=== PATIENT | female | born 1975 | race Caucasian/White ===

== ENCOUNTER → 2020-12-29 | Outpatient (CLI) | payer OTHER ==
[~2020-12-29] MED LIST: ENDOCET 5-3251 EACH PO; IRON325 M1 PO
== END ==
LOC: M.RAD 10:35
PROVIDERS: ATTEND Internal Medicine
DX: Z12.31 Encounter for screening mammogram for malignant neoplasm of breast (principal); N63.23 Unspecified lump in the left breast, lower outer quadrant; Z80.3 Family history of malignant neoplasm of breast

== ENCOUNTER → 2021-01-05 | Outpatient (CLI) | payer OTHER ==
--- NOTE | 2021-01-13 14:07 | PATH ---
[address] [address] PATHOLOGY RPT PROCEDURE Name: MONROE JARAMILLO Room: [facility] Gareth#: [id number] Admission: 01/05/21 Date of : 79 Discharge: Report #: [id number] Path Case #: [id number] [facility] Accession Number: [id number] . 01 Material submitted: . breast - LEFT BREAST MASS BIOPSY. Modifiers: left . 01 Clinical history: . US/BREAST BIOPSY/LEFT MASS LEFT BREAST BIOPSY LEFT BREAST MASS 500 2 CRN 2.03X1.37X2.07 . 02 Diagnosis: Breast "left mass 5:00, 2 cmfn", needle biopsy: - INVASIVE DUCTAL CARCINOMA, GRADE 2. - Tumor spans at least 12 mm. - Please see cancer summary below. (KWAME:angel luis; 01/07/2021) . . Surgical Pathology Cancer Case Summary Version: INVASIVE CARCINOMA OF THE BREAST: Biopsy 1.1.0.0 Protocol posting date: November 2019 . Procedure ___ Needle biopsy . Specimen Laterality ___ Left . Tumor Site ___ Clock position: 5 o'clock ___ Distance from nipple: 2 cm . Tumor Size ___ Greatest dimension of largest invasive focus >1 mm: at least 12 mm . Histologic Type ___ Invasive ductal carcinoma . Histologic Grade (Barnsdall Histologic Score) Glandular (Acinar)/Tubular Differentiation ___ Score 2 (10% to 75% of tumor area forming glandular/tubular structures) . Nuclear Pleomorphism ___ Score 2 (cells larger than normal with open vesicular nuclei, visible nucleoli, and moderate variability in both size and shape) [place] [address] PATHOLOGY RPT PROCEDURE Name: MONROE JARAMILLO Room: [facility]#: [id number] Admission: 01/05/21 Date of : 79 Discharge: Report #: [id number] Path Case #: [id number] . Mitotic Rate ___ Score 2 . Overall Grade ___ Grade 2 (score 6) . Ductal Carcinoma In Situ (DCIS) ___ Not identified . Lymphovascular Invasion ___ Not identified . Ancillary Studies Biomarker Studies ___ Breast biomarkers will be ordered on block A1 and the results will be the subject of an addendum report . (KWAME:angel luis; 01/07/2021) . . A message regarding the diagnosis is left for Dr. Justa De La Torre on her office voicemail on 01/10/2021 at 12:55. . MBR 01/10/2021 1256 Local . 02 Comment: The case is seen in co-review with Dr. Leslie Carver who concurs with the above diagnosis. (KEATONK:angel luis; 01/07/2021) . 02 Addendum: . Special studies report received from [facility], [address] [place] [address], [address], [place], [address], on case [id number], labeled with their number [id number], dated 01/11/2021. . Breast/Prognostic Marker Analysis . Specimen Site: Lt Breast Mass 5:00, 2 Cm FN, Needle Biopsy, Breast Cancer Specimen ID #: [id number] . ER (Estrogen Receptor) Absent/Negative Percent: 0.00 Analysis: Manual Comments: ER IHC reviewed with Dr Muna Smiley (surgical pathologist) [place] [address] PATHOLOGY RPT PROCEDURE Name: MONROE JARAMILLO Room: [facility] Servin#: [id number] Admission: 01/05/21 Date of : 79 Discharge: Report #: [id number] Path Case #: [id number] FL (Progesterone Receptor) Absent/Negative Percent: 0.00 Analysis: Manual . HER2 Not Over-Expressed Score: 1+ Analysis: Manual Reference Range . Ki-67 High Proliferation Percent: 90.00% Analysis: Manual . Time to Fixation (Cold Ischemic Time): Immediate Duration of Fixation: 8 hours and 50 min Type of Fixative: 10% Neutral Buffered Formalin . . Comments: ER/PgR testing at [facility]. is performed in compliance with the ASCO/CAP Clinical Practice Guidelines. If the result for ER is less than 1% it is reported as Negative; if the ER result is 1-10% it is reported as Low Positive; if the ER result is greater than 10% it is reported as Positive. If the result for PgR is less than 1% it is reported as Negative; if the PgR result is equal to or greater than 1%, it is reported as Positive. . REF: Myra WRIGHT, Lizabeth DAVIS, et al: Estrogen and Progesterone Receptor Testing in Breast Cancer. ASCO/CAP Guideline Update. DOI 10.5858/arpa.7640-3977-NN. . Whole slide image capture is performed using [employer] ([employer]) platform. Image analysis, if ordered, is performed using Stem software. . at [facility]. Gwyn Yeh MD Pathologist . . Methodology The HER2 Receptor protein expression is analyzed using the [place] HER2 rabbit monoclonal antibody (clone 4B5). This assay is used for diagnostic determination of the HER2 protein over-expression in paraffin embedded, formalin fixed breast cancer tissue on the [place] [address] PATHOLOGY RPT PROCEDURE Name: MONROE JARAMILLO [facility] [id number] Admission: 01/05/21 Date of : 79 Discharge: Report #: [id number] Path Case #: [id number] is processed using a secondary antibody-HRP conjugate detection system. The membrane staining of the tumor is determined either by manual score or image analysis. This antibody is intended for in vitro diagnostic use. The score is reported as 0, 1+, 2+, or 3+. This test is used for clinical purposes. . A rabbit monoclonal antibody (clone SP1) that recognized the Estrogen Receptor is used to perform immunohistochemistry on routinely fixed (formalin) paraffin embedded tissue on the [place] Benchmark. The specimen is processed using a secondary antibody-HRP conjugate detection system. The percentage of stained tumor nuclei is determined either manually or by image analysis. This test is intended for in vitro diagnostic use. This test is used for clinical purposes. . A rabbit monoclonal antibody (clone 1E2) that recognized the Progesterone Receptor is used to perform immunohistochemistry on routinely fixed (formalin) paraffin embedded tissue on the [place] Benchmark. The specimen is processed using a secondary antibody-HRP conjugate detection system. The percentage of stained tumor nuclei is determined either manually or by image analysis. This test is intended for in vitro diagnostic use. This test is used for clinical purposes. . A rabbit monoclonal antibody (clone 30-9) that recognized Ki67 is used to perform immunohistochemistry on routinely fixed (formalin) paraffin embedded tissue on the [place] Benchmark. The specimen is processed using a secondary antibody-HRP conjugate detection system. The percentage of stained tumor nuclei is determined either manually or by image analysis. This test is intended for in vitro diagnostic use. This test is used for clinical purposes. . Intended Use: This antibody is intended for in vitro diagnostic (IVD) use. HER2 (4B5) is a rabbit monoclonal antibody intended for the semi-quantitative detection of HER2 antigen in sections of formalin-fixed, paraffin embedded normal and neoplastic tissue. . This antibody is intended for in vitro diagnostic (IVD) use. Estrogen Receptor (ER) (SP1) is a rabbit monoclonal antibody (IgG) that is intended for the qualitative detection of estrogen receptor (ER) antigen in sections of formalin-fixed, paraffin-embedded tissue. ER is a rabbit monoclonal antibody that recognizes human estrogen receptor alpha. . This antibody is intended for in vitro diagnostic (IVD) use. Progesterone Receptor (FL) (1E2) is a rabbit monoclonal antibody (IgG) that is intended for the qualitative detection of progesterone receptor (FL) antigen in sections of formalin fixed, paraffin embedded tissue. FL is a rabbit monoclonal antibody that recognizes the A and B forms of the human progesterone [place] [address] PATHOLOGY RPT PROCEDURE Name: MONROE JARAMILLO Room: [facility]#: [id number] Admission: 01/05/21 Date of : 79 Discharge: Report #: [id number] Path Case #: [id number] This antibody is intended for in vitro diagnostic (IVD) use. Ki-67 (30-9) is a rabbit monoclonal antibody (IgG) directed against C-terminal portion of Ki-67 antigen. Staining for Ki-67 can be used to aid in assessing the proliferative activity of normal and neoplastic tissue. Ki-67 is a nuclear protein expressed in proliferating cells. During the cell cycle, the Ki-67 antigen is present in the G1, S, G2 and M phase but is absent in the G0 (quiescent phase). . . Disclaimer: This Test was performed by [employer] at [address] [place] [address], [address]. . [facility] is a business unit of [facility]. a wholly-owned subsidiary of [employer]. . This assay has not been validated on decalcified tissues. Results should be interpreted with caution if this specimen was decalcified given the likelihood of false negativity on decalcified specimens. . Any image(s) that accompany this report is/are a security representative image(s) only and should not be used to render a diagnosis. . This interpretation is contingent on the specimen and the clinical information received. . For any special tests/stains performed, known positive cells or tissues are tested with each marker and examined to ensure positivity. Positive and negative internal controls, if present, react appropriately. . This analysis is an adjunct to the evaluation of the referring physician and does not represent a final diagnosis. . The immunohistochemistry tests performed at [facility]. were validated on tissue fixed in 10% neutral buffered formalin. The performance characteristics of the tests performed on tissue processed in other fixatives is not known. . HER2 testing at [facility]., is performed in compliance with the 2018 updated ASCO/CAP Clinical Practice Guideline Focused Update. If the result is EQUIVOCAL (2+), it must be confirmed by an alternative assay such as FISH or Dual LUCHO. REF: Carolann ORTEGA, SUSAN Barone et al: Human Epidermal Growth Factor Receptor 2 Testing in Breast Cancer: ASCO/CAP Clinical Practice Guideline Focused Update. J Clin Oncol 36:5665-1281, 2018. . HER2 and ER/FL ASCO/CAP guidelines require fixation in neutral buffered formalin for a minimum of 6 and a maximum of 72 hours. Fixation times less [address] [address] PATHOLOGY RPT PROCEDURE Name: MONROE JARAMILLO Room: [facility] HANNA Servin#: [id number] Admission: 01/05/21 Date of : 79 Discharge: Report #: [id number] Path Case #: [id number] than 6 hours may not adequately preserve cell proteins. Fixation times longer than 72 hours may cause excess cross-linking of proteins reducing the antigen available for staining. Either scenario can cause reduced staining; hence false negative results are possible and should be considered for these situations if the HER2 IHC score is less than 3+ or ER or FL is negative (no staining or <1% positive). It is recommended that specimens fixed longer than 72 hours with HER2 IHC scores less than 3+ be confirmed by HER2 FISH or Dual LUCHO. The time from biopsy/excision to fixation in formalin (cold ischemic time) must be less than 1 hour. Time to fixation (cold ischemic time) greater than 1 hour should be interpreted with caution. HER2 testing, mainly HER2 by FISH, is particularly vulnerable since excessive cold ischemic time results in preferential loss of HER2 probe signals that may lead to false negative results. . SCORE STAINING PATTERN IN TUMOR CELLS INTERPRETATION RESULTS 0 No staining observed or incomplete, faint membrane staining in less than or equal to 10% of tumor cells. Negative 1+ Incomplete, faint membrane staining in greater than 10% of tumor cells. Negative 2+ Weak to moderate complete membrane staining observed in greater than 10% of tumor cells. Equivocal* *Must be confirmed by alternative assay (IHC/FISH/Dual LUCHO) 3+ Intense, complete membrane staining in greater than 10% of tumor cells. Positive . A complete copy of the report is on file. . Professional and Technical services performed by [facility] at [address] [place] [address]. . (MLK:fahad 01/12/2021) . AZJ/01/12/2021 Addendum Electronically Signed by Randall Juarez MD, Pathologist . 02 Electronically signed: . Randall Juarez MD, Pathologist NPI- [id number] . 01 Gross description: . The specimen is received in formalin, labeled "Monroe Jaramillo, left breast biopsy 5:00 2 cm from nipple". Received [place] [address] PATHOLOGY RPT PROCEDURE Name: MONROE JARAMILLO Room: [facility].#: [id number] Admission: 01/05/21 Date of : 79 Discharge: Report #: [id number] Path Case #: [id number] fibrofatty tissue measuring 1.5 x 0.8 x 0.2 cm in aggregate dimensions. The specimen is submitted entirely in cassettes A1 through A3. The cold ischemic time is less than 1 minute. The total formalin fixation time is 8 hours and 50 minutes. (CAA; 01/05/2021) QAC/QAC 01/05/2021 1830 Local . 02 Pathologist provided ICD-10: C50.912 . 02 CPT . 932824 Specimen Comment: A courtesy copy of this report has been sent to [phone], [phone] Specimen Comment: 0012, , Specimen Comment: Report sent to ,DR DE LA TORRE,DR SHOEMAKER / DR BARONE Performed at: 01 [facility] [address] [place] [address] [place] [id number] MD Baldev Barnhart MD Phone: [phone] Performed at: [address] [facility] [id number] MD Hemanth Nolan MD Phone: [phone]
== END | disposition home or self-care (01) ==
LOC: M.ULTRA 08:13
PROVIDERS: ATTEND Radiology Diagnostic Radiology
DX: C50.912 Malignant neoplasm of unspecified site of left female breast (principal); R92.1 Mammographic calcification found on diagnostic imaging of breast

== ENCOUNTER → 2021-01-17 | Outpatient (CLI) | payer OTHER | LOC: M.LAB 16:07 | PROVIDERS: ATTEND Surgery | DX: Z01.812 Encounter for preprocedural laboratory examination (principal); Z20.822 Contact with and (suspected) exposure to COVID-19 ==

== ENCOUNTER → 2021-01-19 | Outpatient (CLI) | payer OTHER ==
--- NOTE | 2021-01-19 10:43 | 2DMMODE ---
[place] [address] 2 D/M-MODE ECHOCARDIOGRAM Name: DAVIDIsidoroMONROEE Room: [facility]#: [id number] Admission: 01/19/21 Attend Phys: Rudy Olmedo MD Discharge: Date of : 79 Date of Service: 01/19/21 1042 Report #: [id number] THIS REPORT FOR: cc: Nuvia De La Torre MD, K. Gay MD Blick, David R. MD [facility] ~ APPROVED REPORT Study performed: 01/19/2021 09:47:49 EXAM: Comprehensive 2D, Doppler, and color-flow Echocardiogram Patient Location: Out-Patient BSA: 1.75 HR: 78 bpm BP: 120/80 mmHg Other Information Study Quality: Excellent Indications Chemo 2D Dimensions IVSd: 8.75 (7-11mm) LVOT Diam: 19.79 (18-24mm) LVDd: 40.90 mm PWd: 6.66 (7-11mm) Ascending Ao: 26.73 (22-36mm) LVDs: 22.33 (25-40mm) Aortic Root: 23.58 mm Volumes Left Atrial Volume (Systole) LA ESV Index: 16.70 mL/m2 Aortic Valve AoV Peak Mark.: 1.13 m/s AO Peak Gr.: 5.11 mmHg LVOT Max P.98 mmHg AO Mean Gr.: 2.50 mmHg LVOT Mean P.60 mmHg LVOT Max V: 1.00 m/s AO V2 VTI: 20.85 cm LVOT Mean V: 0.57 m/s PEGGY (VTI): 2.94 cm2 LVOT V1 VTI: 19.91 cm Mitral Valve E/A Ratio: 1.43 [place] [address] 2 D/M-MODE ECHOCARDIOGRAM Name: MONROE BERRIOS Room: [facility]#: [id number] Admission: 01/19/21 Attend Phys: Rudy Olmedo MD Discharge: Date of : 79 Date of Service: 01/19/21 1042 Report #: [id number] MV Decel. Time: 186.47 ms MV E Max Mark.: 0.80 m/s MV PHT: 54.08 ms MVA (PHT): 4.07 cm2 TDI E/Lateral E': 4.44 E/Medial E': 6.67 Medial E' Mark.: 0.12 m/s Lateral E' Mark.: 0.18 m/s Pulmonary Valve PV Peak Mark.: 0.86 m/s PV Peak Gr.: 2.95 mmHg Tricuspid Valve RAP Estimate: 5.00 mmHg TR Peak Gr.: 18.58 mmHg RVSP: 23.58 mmHg PA Pressure: 23.58 mmHg Left Ventricle The left ventricle is normal size. There is normal LV segmental wall motion. There is normal left ventricular wall thickness. Left ventricular systolic function is normal. The left ventricular ejection fraction is within the normal range. LVEF is 55-60%. The left ventricular diastolic function is normal. Right Ventricle The right ventricle is normal size. The right ventricular systolic function is normal. Atria The left atrium size is normal. The right atrium size is normal. Aortic Valve The aortic valve is normal in structure. No aortic regurgitation is present. There is no aortic valvular stenosis. Mitral Valve The mitral valve is normal in structure. Mild mitral regurgitation. No evidence of mitral valve stenosis. Tricuspid Valve The tricuspid valve is normal in structure. Mild tricuspid regurgitation[place] [address] 2 D/M-MODE ECHOCARDIOGRAM Name: KOBY BERRIOSERINE SALVADOR Room: [facility]#: [id number] Admission: 01/19/21 Attend Phys: Rudy Olmedo MD Discharge: Date of : 79 Date of Service: 01/19/21 1042 Report #: [id number] The pulmonary valve is normal in structure. There is no pulmonic valvular regurgitation. Great Vessels The aortic root is normal in size. IVC is normal in size and collapses >50% with inspiration. Pericardium There is no pericardial effusion. <Conclusion> Left ventricular systolic function is normal. The left ventricular ejection fraction is within the normal range. <ELECTRONICALLY SIGNED> By: Damien Morales MD, FACC 01/19/211041 41 41 Damien Morales MD, FACC /INF
== END ==
LOC: M.CRD 09:48
PROVIDERS: ATTEND Internal Medicine Hematology & Oncology
DX: I08.1 Rheumatic disorders of both mitral and tricuspid valves (principal); C50.919 Malignant neoplasm of unspecified site of unspecified female breast